=== PATIENT | male | born 1940 | race Caucasian/White ===

== ENCOUNTER 2018-06-17 17:52 | Inpatient (IN) | payer OTHER ==
[~2018-06-17] VITALS: Ht 182.9 cm; Wt 88.9 kg
[~2018-06-17 17:52] MED LIST: ASPI-231 PO
[2018-06-17] MEDS ORDERED: SODIUM CHLORIDE 0.9% 1,000 ML IV ONE (18:26)
[2018-06-17] MEDS ORDERED: ONDANSETRON HCL 4 MG/2 ML VIAL IV ONE (18:30)
[2018-06-17] MEDS ORDERED: InsuLIN REG 1unit/0.01ml Soln (100units/ml) IV ONE (19:00)
[2018-06-17] MEDS ORDERED: PIPERACILLIN-TAZOB 3.375GM 100 ML IV ONE (19:15)
[2018-06-17 19:22] LABS: Basophils # (auto) 0 uL; Basophils % (auto) 0.1 % (0.0-2.0); Eosinophils # (auto) 0 uL; Eosinophils % (auto) 0.1 % (0.0-7.0); Hemoglobin 14.6 g/dL (13.5-17.5); Lymphocytes # (auto) 1.2 uL; Lymphocytes % (auto) 5.2 % (10.0-50.0); Mean Corpuscular Hemoglobin 27.1 pg (28.0-32.0); Mean Corpuscular Hgb Conc. 31.8 g/dL (32.0-36.0); Mean Corpuscular Volume 85.2 fL (80.0-100.0); Monocytes # (auto) 1.5 uL; Monocytes % (auto) 6.4 % (0.0-12.0); Neutrophils # (auto) 20.2 uL; Neutrophils % (auto) 88.2 % (37.0-80.0); Platelet Count (auto) 232 10^3/uL (140-450); Red Cell Distribution Width 15.4 % (11.8-14.3)
[2018-06-17 19:39] LABS: Lactic Acid w/Reflex 2.8 mmol/L (0.4-2.0)
[2018-06-17 19:41] LABS: INR 1.2 (0.9-1.15); Prothrombin Time 12.7 sec (9.27-12.13)
[2018-06-17 19:42] LABS: Albumin 2.5 g/dL (3.4-5.0); BUN/Creatinine Ratio 23.2; Bilirubin, Total 1.2 mg/dL (0.2-1.0); Calcium 7.7 mg/dL (8.5-10.1); Total Protein 6.2 g/dL (6.4-8.2)
[2018-06-17] MEDS ORDERED: IOHEXOL 300 MG/ML 100ML BOTTLE IJ ONE (21:54)
[2018-06-17 22:29] LABS: Urine Bacteria NONE SEEN /hpf (None Seen); Urine Blood TRACE /uL (Negative); Urine Budding Yeast FEW /hpf (None Seen); Urine Specific Gravity 1.017 (1.001-1.035); Urine WBC 122 /hpf (0 - 3)
[2018-06-18] MEDS ORDERED: LEVOFLOXACIN 500MG 100 ML IV ONE (00:30)
[2018-06-18] MEDS ORDERED: DEXTROSE (50%) 50ML SYRG IV PRN (00:30)
[2018-06-18] MEDS ORDERED: PANTOPRAZOLE 40 MG/10 ML VIAL IV ONE (00:30)
[2018-06-18] MEDS ORDERED: MORPHINE SULFATE 4 MG/ML SYR/VIAL IV PRN (00:30)
[2018-06-18] MEDS ORDERED: TEMAZEPAM 15 MG CAP PO PRN (00:30)
[2018-06-18] MEDS ORDERED: POTASSIUM CHL 20 Meq TABLET PO ONE (00:30)
[2018-06-18] MEDS ORDERED: NITROGLYCERIN 0.4 MG SL TAB SL PRN (00:30)
[2018-06-18] MEDS ORDERED: ONDANSETRON HCL 4 MG/2 ML VIAL IV PRN (00:30)
[2018-06-18] MEDS ORDERED: ACETAMINOPHEN 325 MG TAB PO PRN (00:30)
[2018-06-18] MEDS ORDERED: SODIUM CHLORIDE 0.9% 1,000 ML IV ONE ×2 (00:30→12:45)
[2018-06-18] MEDS: SODIUM CHLORIDE 0.9% 1,000 ML IV SCH ×2 (01:00→17:33)
[2018-06-18] MEDS: ACCU-CHEK COMFORT CURVE STRIP VI SCH ×5 (04:09→22:39)
[2018-06-18] MEDS: InsuLIN REG 1unit/0.01ml Soln (100units/ml) SC SCH ×5 (04:10→22:40)
[2018-06-18 07:30] LABS: Albumin 1.9 g/dL (3.4-5.0); BUN/Creatinine Ratio 27.3; Bilirubin, Total 1.2 mg/dL (0.2-1.0); Calcium 7.1 mg/dL (8.5-10.1); Total Protein 5.1 g/dL (6.4-8.2)
[2018-06-18 07:34] LABS: Potassium 2.8 mmol/L (3.5-5.1)
[2018-06-18 07:40] LABS: Basophils # (auto) 0 uL; Basophils % (auto) 0.1 % (0.0-2.0); Eosinophils # (auto) 0 uL; Hemoglobin 13.4 g/dL (13.5-17.5); Lymphocytes # (auto) 2.1 uL; Lymphocytes % (auto) 8.6 % (10.0-50.0); Mean Corpuscular Hgb Conc. 31.9 g/dL (32.0-36.0); Mean Corpuscular Volume 84.5 fL (80.0-100.0); Monocytes # (auto) 1.5 uL; Monocytes % (auto) 6.3 % (0.0-12.0); Platelet Count (auto) 207 10^3/uL (140-450); Red Blood Cells 4.98 10^6/uL (4.5-5.90); Red Cell Distribution Width 15.4 % (11.8-14.3); White Blood Cell 24.6 10^3/uL (4.4-10.8)
[2018-06-18] MEDS: PANTOPRAZOLE 40 MG/10 ML VIAL IV SCH (08:19)
[2018-06-18] MEDS: ENOXAPARIN SOD 40 MG/0.4 ML SYRINGE SC SCH (10:14)
[2018-06-18 10:50] VITALS: BP 84/34
[2018-06-18] MEDS: POTASSIUM CHL 20MEQ/100ML 100 ML IV SCH ×2 (11:37→14:01)
[2018-06-18 13:00] VITALS: BP 91/49
[2018-06-18 15:34] VITALS: BP 91/49
[2018-06-18] MEDS ORDERED: VANCOMYCIN 1GM/250ML 250 ML IV ONE (15:45)
[2018-06-18] MEDS ORDERED: VANCOMYCIN PER PHARMACY 0 MG IV SCH (15:45)
[2018-06-18 17:00] VITALS: BP 106/54
[2018-06-18] MEDS: IPRATROPIUM BROM 0.5 MG/2.5ML INH SOL NEB SCH ×2 (19:47→19:54)
[2018-06-18] MEDS: ALBUTEROL SULF 2.5 MG/0.5ML(0.5%) NEB SOLN NEB SCH ×2 (19:47→19:54)
[2018-06-18 19:51] LABS: Calcium 7.2 mg/dL (8.5-10.1); Magnesium 1.8 mg/dL (1.6-2.6); Potassium 3.2 mmol/L (3.5-5.1)
[2018-06-18] MEDS: LEVOFLOXACIN 250MG 50 ML IV SCH (20:37)
[2018-06-18 21:18] VITALS: BP 114/48
[2018-06-19] MEDS: ALBUTEROL SULF 2.5 MG/0.5ML(0.5%) NEB SOLN NEB SCH ×4 (00:17→18:35)
[2018-06-19] MEDS: IPRATROPIUM BROM 0.5 MG/2.5ML INH SOL NEB SCH ×4 (00:17→18:35)
[2018-06-19] MEDS: SODIUM CHLORIDE 0.9% 1,000 ML IV SCH (03:10)
[2018-06-19 03:58] VITALS: BP 114/55
[2018-06-19 04:27] VITALS: BP 114/48
[2018-06-19] MEDS: ACCU-CHEK COMFORT CURVE STRIP VI SCH ×4 (06:28→22:05)
[2018-06-19] MEDS: InsuLIN REG 1unit/0.01ml Soln (100units/ml) SC SCH ×4 (06:29→22:20)
[2018-06-19 06:41] LABS: Basophils # (auto) 0 uL; Basophils % (auto) 0.1 % (0.0-2.0); Eosinophils # (auto) 0 uL; Eosinophils % (auto) 0.2 % (0.0-7.0); Hematocrit 37.6 % (41.0-53.0); Hemoglobin 12.4 g/dL (13.5-17.5); Lymphocytes # (auto) 1.7 uL; Lymphocytes % (auto) 10.4 % (10.0-50.0); Mean Corpuscular Hemoglobin 27.8 pg (28.0-32.0); Mean Corpuscular Volume 84.2 fL (80.0-100.0); Monocytes % (auto) 6.3 % (0.0-12.0); Neutrophils # (auto) 13.4 uL; Platelet Count (auto) 162 10^3/uL (140-450); Red Blood Cells 4.46 10^6/uL (4.5-5.90); Red Cell Distribution Width 15.2 % (11.8-14.3); White Blood Cell 16.1 10^3/uL (4.4-10.8)
[2018-06-19 07:20] LABS: Albumin 1.8 g/dL (3.4-5.0); Bilirubin, Total 0.9 mg/dL (0.2-1.0); Calcium 7.1 mg/dL (8.5-10.1); Magnesium 1.9 mg/dL (1.6-2.6); Potassium 3.2 mmol/L (3.5-5.1)
[2018-06-19 07:54] VITALS: BP 110/52
[2018-06-19] MEDS: PANTOPRAZOLE 40 MG/10 ML VIAL IV SCH (10:09)
[2018-06-19] MEDS: ENOXAPARIN SOD 40 MG/0.4 ML SYRINGE SC SCH (10:09)
[2018-06-19] MEDS: VANCOMYCIN 1GM/250ML 250 ML IV SCH (10:10)
[2018-06-19 11:44] VITALS: BP 112/55
[2018-06-19] MEDS: FLUCONAZOLE 100 MG TAB PO SCH (17:00)
[2018-06-19] MEDS: POTASSIUM CHL 20 Meq TABLET PO SCH ×2 (17:00→18:00)
[2018-06-19 17:40] VITALS: BP 105/55
[2018-06-19] MEDS: LEVOFLOXACIN 250MG 50 ML IV SCH (20:57)
[2018-06-19 21:34] VITALS: BP 111/47
[2018-06-20] MEDS: ALBUTEROL SULF 2.5 MG/0.5ML(0.5%) NEB SOLN NEB SCH ×5 (00:23→19:41)
[2018-06-20] MEDS: IPRATROPIUM BROM 0.5 MG/2.5ML INH SOL NEB SCH ×5 (00:23→19:41)
[2018-06-20] MEDS: VANCOMYCIN 1GM/250ML 250 ML IV SCH ×2 (04:11→22:20)
[2018-06-20 04:53] VITALS: BP 125/57
[2018-06-20 05:16] LABS: Basophils # (auto) 0 uL; Basophils % (auto) 0.3 % (0.0-2.0); Eosinophils # (auto) 0.1 uL; Eosinophils % (auto) 0.8 % (0.0-7.0); Hematocrit 36.1 % (41.0-53.0); Hemoglobin 11.9 g/dL (13.5-17.5); Lymphocytes # (auto) 1.6 uL; Lymphocytes % (auto) 15.2 % (10.0-50.0); Mean Corpuscular Hemoglobin 27.9 pg (28.0-32.0); Mean Corpuscular Volume 84.4 fL (80.0-100.0); Monocytes # (auto) 0.7 uL; Neutrophils # (auto) 8.1 uL; Neutrophils % (auto) 76.7 % (37.0-80.0); Nucleated Red Blood Cells % 0.1 %; Platelet Count (auto) 161 10^3/uL (140-450); Red Blood Cells 4.28 10^6/uL (4.5-5.90); Red Cell Distribution Width 15.5 % (11.8-14.3); White Blood Cell 10.6 10^3/uL (4.4-10.8)
[2018-06-20 05:24] LABS: INR 1.07 (0.9-1.15); Partial Thromboplastin Time 32.3 sec (23.78-33.04); Prothrombin Time 11.4 sec (9.27-12.13)
[2018-06-20 05:37] LABS: Folate (Folic Acid) 7.51 ng/mL (5.38-24)
[2018-06-20 05:41] LABS: Calcium 7.3 mg/dL (8.5-10.1); Magnesium 1.7 mg/dL (1.6-2.6); Potassium 3.9 mmol/L (3.5-5.1)
[2018-06-20] MEDS: ACCU-CHEK COMFORT CURVE STRIP VI SCH ×4 (06:50→21:59)
[2018-06-20] MEDS: InsuLIN REG 1unit/0.01ml Soln (100units/ml) SC SCH ×4 (06:51→22:00)
[2018-06-20] MEDS: PANTOPRAZOLE 40 MG/10 ML VIAL IV SCH (08:50)
[2018-06-20] MEDS: ENOXAPARIN SOD 40 MG/0.4 ML SYRINGE SC SCH (08:50)
[2018-06-20] MEDS: FLUCONAZOLE 100 MG TAB PO SCH (08:50)
[2018-06-20 09:00] VITALS: BP 128/60
[2018-06-20 13:00] VITALS: BP 122/54
[2018-06-20 17:00] VITALS: BP 128/67
[2018-06-20] MEDS: Pro-Stat SF 30ml Vanilla PO SCH (17:46)
[2018-06-20] MEDS: LEVOFLOXACIN 250MG 50 ML IV SCH (21:05)
[2018-06-20 22:00] VITALS: BP 122/54
[2018-06-21 05:00] VITALS: BP 120/60
[2018-06-21 06:06] LABS: RPR Non Reactive (Non Reactive)
[2018-06-21] MEDS: InsuLIN REG 1unit/0.01ml Soln (100units/ml) SC SCH ×2 (06:33→11:59)
[2018-06-21] MEDS: ACCU-CHEK COMFORT CURVE STRIP VI SCH ×2 (06:33→11:59)
[2018-06-21] MEDS: ALBUTEROL SULF 2.5 MG/0.5ML(0.5%) NEB SOLN NEB SCH ×2 (07:38→14:00)
[2018-06-21] MEDS: IPRATROPIUM BROM 0.5 MG/2.5ML INH SOL NEB SCH ×2 (07:38→14:00)
[2018-06-21] MEDS: PANTOPRAZOLE 40 MG/10 ML VIAL IV SCH (09:02)
[2018-06-21 09:07] VITALS: BP 109/53
[2018-06-21] MEDS: Pro-Stat SF 30ml Vanilla PO SCH (09:15)
[2018-06-21] MEDS: VANCOMYCIN 1GM/250ML 250 ML IV SCH (09:16)
[2018-06-21] MEDS: ENOXAPARIN SOD 40 MG/0.4 ML SYRINGE SC SCH (09:16)
[2018-06-21] MEDS: FLUCONAZOLE 100 MG TAB PO SCH (09:16)
[2018-06-21 13:00] VITALS: BP 121/50
[2018-06-21 15:50] VITALS: BP 121/50
== END 2018-06-21 16:15 | disposition hospice, inpatient (51) | DRG 871 ==
LOC: EDBD 17:52 → ER 17:58 → TELE 17:59 → TELE-WESTW 06-18 10:58
PROVIDERS: ADMIT Nurse Practitioner; ATTEND Internal Medicine
DX: A41.9 Sepsis, unspecified organism (principal); L89.154 Pressure ulcer of sacral region, stage 4; E11.10 Type 2 diabetes mellitus with ketoacidosis without coma; G92 Toxic encephalopathy; J18.1 Lobar pneumonia, unspecified organism; N17.9 Acute kidney failure, unspecified; J44.0 Chronic obstructive pulmonary disease with (acute) lower respiratory infection; B37.49 Other urogenital candidiasis; N30.90 Cystitis, unspecified without hematuria; E11.51 Type 2 diabetes mellitus with diabetic peripheral angiopathy without gangrene; E78.00 Pure hypercholesterolemia, unspecified; E87.6 Hypokalemia; I10 Essential (primary) hypertension; I67.2 Cerebral atherosclerosis; I70.0 Atherosclerosis of aorta; Z89.512 Acquired absence of left leg below knee; M46.04 Spinal enthesopathy, thoracic region
CPT/HCPCS: 36415; 70450; 71045; 71250; 74177; 80048; 80053; 80202; 81001; 82010; 82607; 82746; 82962; 83036; 83605; 83735; 83880; 84443; 84484; 85025; 85610; 85730; 86592; 87040; 87086; 93005; 94640; 96365; 96366; 96375; 99291; C9113; J1815; J1956; J2405; J2543; J3480